=== PATIENT | female | born 2000 | race American Indian/Alaskan Native ===

== ENCOUNTER 2021-10-23 15:55 | Emergency (ER) | payer SELFPAY ==
[2021-10-23] MEDS ORDERED: SODIUM CHLORIDE 0.9% 1000 ML 1,000 ML IV ONE (17:35)
[2021-10-23] MEDS ORDERED: ONDANSETRON 4 MG/2 ML INJ IV ONE (17:35)
[2021-10-23] MEDS ORDERED: MORPHINE 4 MG/1 ML INJ IV ONE (17:37)
[2021-10-23 18:01] LABS: HCG Qualitative,Urine Negative (Negative)
[2021-10-23 18:04] LABS: Bilirubin,Urine NEG (Negative); Blood,Urine MOD (Negative); Color,Urine Yellow (Yellow); Urobilinogen,Urine < 2.0 mg/dL (<2.0)
[2021-10-23 18:29] LABS: Hematocrit 32.5 % (30.3-42.9); Mean Corpuscular HGB Conc 34 % (30-34); Mean Corpuscular Volume 84 fl (79-97); Platelet Count 222 K/mm3 (140-440); Red Blood Count 3.88 M/mm3 (3.65-5.03); Red Cell Distribution Width 15.2 % (13.2-15.2)
[2021-10-23 18:43] LABS: Alanine Aminotransferase 10 units/L (7-56); Blood Urea Nitrogen 14 mg/dL (7-17); Calcium 9.9 mg/dL (8.4-10.2); Hemolysis Index 11
--- NOTE | 2021-10-23 18:52 | Emergency Department Report ---
ED Female HPI - General Chief complaint: Urogenital-Female Stated complaint: ABD PAIN/VOMITTING/CRAMPS Source: patient Mode of arrival: Ambulatory Limitations: No Limitations - History of Present Illness Initial comments: 21-year-old female complaining of abdominal cramping with vomiting. Patient states that she has dysmenorrhea. She states that she was previously on control . Patient states that pain is a current 8 out of 10. States that she has vomited x3 today. Patient denies any chest pain or shortness of breath at present. Denies any vaginal discharge. No acute distress noted. No ill appearance noted. - Related Data Previous Rx's Medication Instructions Recorded Last Taken Type Naproxen [Naprosyn] 500 mg PO BID 15 Days #30 tablet 10/23/21 Unknown Rx Ondansetron (Nf) [Zofran TAB] 8 mg PO Q8HR PRN 3 Days #12 tablet 10/23/21 Unknown Rx Allergies Allergy/AdvReac Type Severity Reaction Status Date / Time No Known Allergies Allergy Unverified 10/23/21 17:35 ED Review of Systems ROS: Stated complaint: ABD PAIN/VOMITTING/CRAMPS Other details as noted in HPI Constitutional: denies: chills, fever Eyes: denies: eye pain, eye discharge, vision change ENT: denies: ear pain, throat pain Respiratory: denies: cough, shortness of breath, wheezing Cardiovascular: denies: chest pain, palpitations Endocrine: no symptoms reported Gastrointestinal: denies: abdominal pain, nausea, diarrhea Genitourinary: denies: urgency, dysuria, discharge Musculoskeletal: denies: back pain, joint swelling, arthralgia Skin: denies: rash, lesions Neurological: denies: headache, weakness, paresthesias Psychiatric: denies: anxiety, depression Hematological/Lymphatic: denies: easy bleeding, easy bruising ED Past Medical Hx - Past Medical History Previous Medical History?: No Additional medical history: dysmenorrhea - Surgical History Additional Surgical History: knee sx - Social History Smoking Status: Never Smoker Substance Use Type: None - Medications Home Medications: Home Medications Medication Instructions Recorded Confirmed Last Taken Type Naproxen [Naprosyn] 500 mg PO BID 15 Days #30 tablet 10/23/21 Unknown Rx Ondansetron (Nf) [Zofran TAB] 8 mg PO Q8HR PRN 3 Days #12 tablet 10/23/21 Unknown Rx ED Physical Exam - General Limitations: No Limitations General appearance: alert, in no apparent distress - Head Head exam: Present: atraumatic, normocephalic - Eye Eye exam: Present: normal appearance - ENT ENT exam: Present: mucous membranes moist - Neck Neck exam: Present: normal inspection - Respiratory Respiratory exam: Present: normal lung sounds bilaterally. Absent: respiratory distress - Cardiovascular Cardiovascular Exam: Present: regular rate, normal rhythm. Absent: systolic murmur, diastolic murmur, rubs, gallop - GI/Abdominal GI/Abdominal exam: Present: soft, normal bowel sounds - Extremities Exam Extremities exam: Present: normal inspection - Back Exam Back exam: Present: normal inspection - Neurological Exam Neurological exam: Present: alert, oriented X3 - Psychiatric Psychiatric exam: Present: normal affect, normal mood - Skin Skin exam: Present: warm, dry, intact, normal color. Absent: rash ED Course Vital Signs 10/23/21 10/23/21 16:49 17:24 Temperature 98.9 F Pulse Rate 89 Respiratory 12 18 Rate Blood Pressure 118/70 O2 Sat by Pulse 100 99 Oximetry ED Medical Decision Making - Medical Decision Making 21-year-old female complaining of abdominal cramping with vomiting. Patient states that she has dysmenorrhea. She states that she was previously on control . Patient states that pain is a current 8 out of 10. States that she has vomited x3 today. Patient denies any chest pain or shortness of breath at present. Denies any vaginal discharge. No acute distress noted. No ill appearance noted. Rechecked the patient is resting quietly quietly and comfortable and feeling better. I discussed the results of diagnostic study, my clinical impression and the plan for further treatment with the patient. Patient agrees with plan and discharge at this present time. All question addressed. I have given the patient instruction regarding a diagnosis ,expectation ,follow- up and return precaution. I explained to the patient that emergent condition may arise and to return to the ED for new worsen and any new persisting condition. I have explained the importance of following up with the primary care physician or referral physician listed below has instructed. The patient verbalized understanding of discharge instruction. Abnormal Lab Results 10/23/21 10/23/21 10/23/21 17:36 18:02 18:02 WBC 9.6 RBC 3.88 Hgb 11.0 Hct 32.5 MCV 84 MCH 28 MCHC 34 RDW 15.2 Plt Count 222 Sodium 141 Potassium 3.8 Chloride 103.7 Carbon Dioxide 19 L Anion Gap 22 BUN 14 Glucose 109 H Calcium 9.9 Total Bilirubin 0.30 AST 17 ALT 10 Alkaline Phosphatase 42 Total Protein 7.8 Albumin 5.0 Albumin/Globulin Ratio 1.8 Urine Color Yellow Urine Turbidity Hazy Urine pH 6.0 Ur Specific [place] 1.027 Urine Protein 100 mg/dl Urine Glucose (UA) Neg Urine Ketones 80 Urine Blood Mod Urine Nitrite Neg Ur Reducing Substances Not Reportable Urine Bilirubin Neg Urine Ictotest Not Reportable Urine Urobilinogen < 2.0 Ur Leukocyte Esterase Neg Urine WBC (Auto) 1.0 Urine RBC (Auto) 1.0 U Epithel Cells (Auto) < 1.0 Urine HCG, Qual Negative Critical care attestation.: If time is entered above; I have spent that time in minutes in the direct care of this critically ill patient, excluding procedure time. ED Disposition Clinical Impression: Dysmenorrhea Disposition: 01 HOME / SELF CARE / HOMELESS Is pt being admited?: No Does the pt Need Aspirin: No Condition: Stable Instructions: Dysmenorrhea, [id number] Additional Instructions: Take medication as prescribed Return to ED for any worsening symptom Prescriptions: Naproxen [Naprosyn] 500 mg PO BID 15 Days #30 tablet Ondansetron (Nf) [Zofran TAB] 8 mg PO Q8HR PRN 3 Days #12 tablet PRN Reason: Nausea Referrals: [facility] [Provider Group] - 3-5 Days Forms: Work/School Release Form(ED) Time of Disposition: 19:01
[2021-10-23 19:16] VITALS: BP 123/76
[2021-10-23 19:22] LABS: BUN/Creatinine Ratio 20
== END 2021-10-23 19:43 | disposition home or self-care (01) ==
LOC: ED 15:55
DX: N94.6 Dysmenorrhea, unspecified (principal); R11.10 Vomiting, unspecified; Z79.899 Other long term (current) drug therapy
CPT/HCPCS: 36415; 80053; 81001; 81025; 85027; 96361; 96374; 96375; 99283; J2270; J2405; J7030